=== PATIENT | female | born 1975 | race African-American/Black ===

== ENCOUNTER 2019-01-04 23:19 | Emergency (ER) | payer MEDICAID ==
[~2019-01-04] VITALS: Ht 172.7 cm; Wt 150.0 kg
[2019-01-04 23:33] VITALS: BP 147/60
[2019-01-05 00:49] LABS: CLARITY URINE CLEAR (CLEAR); COLOR URINE YELLOW (YELLOW); KETONES URINE TRACE (NEGATIVE); LEUKOCYTE ESTERASE URINE NEGATIVE (NEGATIVE); NITRITE URINE NEGATIVE (NEGATIVE); OCCULT BLOOD URINE NEGATIVE (NEGATIVE); PROTEIN URINE NEGATIVE (NEGATIVE); SPECIFIC GRAVITY URINE 1.026 (1.005-1.030)
== END 2019-01-05 01:35 | disposition left against medical advice (07) ==
LOC: ER 23:19
DX: Z53.21 Procedure and treatment not carried out due to patient leaving prior to being seen by health care provider (principal); F17.200 Nicotine dependence, unspecified, uncomplicated
CPT/HCPCS: 81025; 93005

== ENCOUNTER 2021-11-18 09:30 | Emergency (ER) | payer MEDICAID ==
[~2021-11-18] VITALS: Ht 172.7 cm; Wt 153.0 kg
[2021-11-18 09:33] VITALS: BP 157/67
== END 2021-11-18 12:20 | disposition left against medical advice (07) ==
LOC: ER 09:30
DX: Z53.21 Procedure and treatment not carried out due to patient leaving prior to being seen by health care provider (principal); I49.9 Cardiac arrhythmia, unspecified
CPT/HCPCS: 93005; J7070